=== PATIENT | female | born 1935 | race Caucasian/White ===

== ENCOUNTER 2016-11-19 14:42 | Emergency (ER) | payer MEDICARE, BC ==
[~2016-11-19] VITALS: Wt 52.5 kg
[~2016-11-19 14:42] MED LIST: CITA-98 PO; ESTR1TAB86 PO; EZET10TA3 PO; OXAZ15CA PO; TRAM50TA2 PO; [UNRECOGNIZED DRUG - CODE] PO
[2016-11-19] MEDS ORDERED: SODIUM CHLORIDE 0.9% 1L BAG IV* STA (15:42)
--- NOTE | 2016-11-19 15:49 | ERD ---
ER Documentation Chief Complaint Date/Time DATE: 11/19/16 TIME: 15:45 Chief Complaint FEVER, THROAT PAIN, COUGH, FEELING SICK, ONSET 1 DAY HPI 81-year-old female with no significant medical problems presenting for fever since yesterday. Her states that she has felt warm to touch. She has had some runny nose and some sinus pain as well. She has had some occasional coughing but nothing significant. She denies any chest pain, shortness of breath, abdominal pain, nausea, vomiting, diarrhea. She endorses "some problems " with urination but states it has been going on for a long time. Dr. Whitaker is her primary care doctor. ROS All systems reviewed and are negative except as per history of present illness. Medications Home Meds Active Scripts Levofloxacin* (Levaquin*) 750 Mg Tablet, 750 MG PO DAILY for 5 Days, TAB Prov:IFRAH SHAH MD 11/19/16 Reported Medications Tramadol Hcl-Acetaminophen* (Ultracet*) 1 Tab Tablet, 1 TAB PO TID 12/02/11 Estradiol (Estradiol) 1 Mg Tablet, 1 TAB PO DAILY 12/02/11 Tramadol HCl (Tramadol HCl) 50 Mg Tablet, 1 TAB PO Q8HRS PRN 12/02/11 Ezetimibe* (Zetia*) 10 Mg Tablet, 1 TAB PO DAILY 12/02/11 Oxazepam* (Oxazepam*) 15 Mg Capsule, 1 TAB PO QHS 12/02/11 Citalopram Hydrobromide* (Celexa*) 20 Mg Tablet, 1 TAB PO QHS 12/02/11 Allergies Allergies: Coded Allergies: Penicillins (Verified Allergy, Severe, HIVES, 12/05/11) PMhx/Soc History of Surgery: Yes (HYSTERECTOMY IN 1969. TONSILLECTOMY) Anesthesia Reaction: No Hx Neurological Disorder: No Hx Respiratory Disorders: No Hx Cardiac Disorders: No Hx Psychiatric Problems: No Hx Miscellaneous Medical Probl: No Hx Alcohol Use: No Hx Substance Use: Yes (SOBER SINCE 1991) Hx Tobacco Use: Yes Smoking Status: Current every day smoker FmHx Family History: No diabetes Physical Exam Vitals Vital Signs Date Time Temp Pulse Resp B/P Pulse Ox O2 Delivery O2 Flow Rate FiO2 11/19/16 17:22 74 18 117/51 97 Room Air 11/19/16 14:47 102.6 114 18 136/63 93 Physical Exam Const: Well-appearing, no distress, nontoxic Head: Atraumatic Eyes: Normal Conjunctiva ENT: Normal External Ears, Nose and Mouth. No facial tenderness. No nasal drainage. Oropharynx normal Neck: Full range of motion. No meningismus. No cervical lymphadenopathy Resp: Clear to auscultation bilaterally, no wheezing, rales, rhonchi Cardio: Tachycardic with regular rhythm, no murmurs Abd: Soft, non tender, non distended. Normal bowel sounds Skin: No petechiae or rashes Back: No midline or flank tenderness Ext: No cyanosis, or edema Neur: Awake and alert Psych: Normal Mood and Affect Result Diagram: 11/19/16 1615 11/19/16 1615 Results 24 hrs Laboratory Tests Test 11/19/16 16:12 11/19/16 16:15 Urine Color LT. YELLOW Urine Clarity CLEAR Urine pH 5.5 Urine Specific [place] 1.020 Urine Ketones NEGATIVE Urine Nitrite POSITIVE Urine Bilirubin NEGATIVE Urine Urobilinogen 0.2 E.U./dL Urine Leukocyte Esterase 3+ Urine Microscopic RBC 2-5/HPF Urine WBC Clumps FEW Urine Microscopic WBC >200/HPF Urine Squamous Epithelial Cells MODERATE Urine Bacteria MANY Urine Hemoglobin 1+ Urine Glucose NEGATIVE% Urine Total Protein 1+ White Blood Count 14.410^3/ul Red Blood Count 3.8310^6/ul Hemoglobin 11.3g/dl Hematocrit 34.5% Mean Corpuscular Volume 90.1fl Mean Corpuscular Hemoglobin 29.5pg Mean Corpuscular Hemoglobin Concent 32.8g/dl Red Cell Distribution Width 13.2% Platelet Count 44019^3/UL Mean Platelet Volume 10.1fl Neutrophils % 85.3% Lymphocytes % 5.9% Monocytes % 8.1% Eosinophils % 0.2% Basophils % 0.1% Nucleated Red Blood Cells % 0.0/100WBC Neutrophils # 12.210^3/ul Lymphocytes # 0.910^3/ul Monocytes # 1.210^3/ul Eosinophils # 0.010^3/ul Basophils # 0.010^3/ul Nucleated Red Blood Cells # 0.010^3/ul Prothrombin Time 12.9Sec Prothrombin Time Ratio 1.0 INR International Normalized Ratio 0.97 Activated Partial Thromboplast Time 35.3Sec Sodium Level 141mmol/L Potassium Level 4.4mmol/L Chloride Level 101mmol/L Carbon Dioxide Level 25mmol/L Anion Gap 19 Blood Urea Nitrogen 33mg/dl Creatinine 1.67mg/dl Glucose Level 127mg/dl Lactic Acid Level 1.1mmol/L Calcium Level 9.9mg/dl Total Bilirubin 0.3mg/dl Direct Bilirubin 0.00mg/dl Indirect Bilirubin 0.3mg/dl Aspartate Amino Transf (AST/SGOT) 14IU/L Alanine Aminotransferase (ALT/SGPT) 17IU/L Alkaline Phosphatase 89IU/L Troponin I < 0.012ng/ml Total Protein 7.4g/dl Albumin 4.2g/dl Globulin 3.20g/dl Albumin/Globulin Ratio 1.31 Current Medications Medications (Trade) Dose Ordered Sig/Rip Route PRN Reason Start Time Stop Time Status Last Admin Dose Admin Sodium Chloride 1630 ml 1,630 ml BOLUS OVER 2 HOURS STAT IV* 11/19/16 15:42 11/19/16 15:45 DC 11/19/16 16:27 Levofloxacin/ Dextrose (Levaquin 750 Mg/ D5W 150 ml (Pmx)) 150 ml @ 100 mls/hr ONCE ONCE IVPB 11/19/16 16:00 11/19/16 17:29 DC 11/19/16 16:27 Acetaminophen (Tylenol Tab) 650 mg ONCE ONCE PO 11/19/16 16:00 11/19/16 16:01 DC 11/19/16 16:31 Procedures/MDM EKG: Rate/Rhythm: Sinus tachycardia QRS, ST, T-waves: No changes consistent w/ acute ischemia Impression: No evidence of ischemia or arrhythmia Chest x-ray shows no acute abnormalities per radiology Labs reviewed: CBC was notable for leukocytosis, CMP was notable for elevated BUN and creatinine, lactate was within normal limits, urinalysis shows evidence of UTI Patient's presentation is consistent with sepsis. Source is unknown, but I suspect possible UTI given her symptoms. Initially her vitals were notable for fever and tachycardia. She was given a fluid bolus with improvement in her vital signs. The patient is nontoxic and she is well-appearing. Her urinalysis confirmed evidence of a UTI. Chest x-ray does not show pneumonia. Her lactate is within normal limits. Levofloxacin IV was given. Patient's infectious symptoms have stabilized and the patient is stable for outpatient treatment of her UTI. I spoke with her PCP's colleague, Dr. Driscoll, and they will ensure she gets a follow up appointment this week with her doctor for repeat BMP. I will discharge her with levofloxacin. Patient feels comfortable with this plan. Return precautions were discussed. Severe Sepsis Assessment: Infectious Source: UTI End organ damage indicated by: INR > 1.5 Severe Sepsis Managment: Blood Cultures X 2 before broad spectrum antibiotics initiated within 3 hours of recognition. 30 ml/kg NS bolus Completed Initial Lactate: normal Repeat Lactate not indicated as initial < 2.0 Critical Care: Time: 35 minutes Treatments/Evaluations: Emergent fluid management, while maintaining close respiratory support. Immediate broad spectrum antibiotic therapy. Simultaneous assessment for possible sources in order to direct therapy. Consideration for invasive and chemical support to prevent respiratory or cardiac collapse. Septic Shock Assessment (1 hour post 30 ml/kg fluid bolus): Hypotension (SBP < 90 or 40 mmHg drop, MAP < 65): No Lactic acid > 4.0 No Departure Diagnosis: Primary Impression: UTI (urinary tract infection) Urinary tract infection type: acute cystitis Hematuria presence: without hematuria Qualified Code: N30.00 - Acute cystitis without hematuria Additional Impressions: Sepsis Sepsis type: sepsis due to unspecified organism Qualified Code: A41.9 - Sepsis, due to unspecified organism Acute kidney injury Condition: Stable EKIFRAH WHIPPLE MD Nov 19, 2016 15:49
[2016-11-19] MEDS ORDERED: ACETAMINOPHEN 325 MG TAB PO ONE (16:00)
[2016-11-19] MEDS ORDERED: LEVOFLOXACIN 750MG/D5W (PMX) 150 ML IVPB ONE (16:00)
[2016-11-19 16:34] LABS: ADD SCAN DIFF NO
[2016-11-19 16:35] LABS: ADD UMIC YES; URINE BILIRUBIN (Dip) NEGATIVE (NEGATIVE); URINE BLOOD (Dip) 1+ (NEGATIVE); URINE COLOR LT. YELLOW (YELLOW); URINE GLUCOSE (Dip) NEGATIVE (NEGATIVE); URINE KETONES (Dip) NEGATIVE (NEGATIVE); URINE LEUKOCYTE ESTERASE (Dip) 3+ (NEGATIVE); URINE NITRITE (Dip) POSITIVE (NEGATIVE); URINE TOTAL PROTEIN (Dip) 1+ (NEGATIVE); URINE UROBILINOGEN (Dip) 0.2 E.U./dL (0.1-1.0)
[2016-11-19 16:39] LABS: BASOPHILS % 0.1 % (0.0-2.0); EOSINOPHILS % 0.2 % (0.0-7.0); HEMATOCRIT 34.5 % (37.0-47.0); HEMOGLOBIN 11.3 g/dl (12.0-16.0); LYMPHOCYTES # 0.9 10^3/ul (0.8-2.9); LYMPHOCYTES % 5.9 % (15.0-51.0); MEAN CORPUSCULAR HEMOGLOBIN 29.5 pg (29.0-33.0); MEAN CORPUSCULAR HGB CONC 32.8 g/dl (32.0-37.0); MEAN CORPUSCULAR VOLUME 90.1 fl (82.0-101.0); MEAN PLATELET VOLUME 10.1 fl (7.4-10.4); MONOCYTE # 1.2 10^3/ul (0.3-0.9); MONOCYTES % 8.1 % (0.0-11.0); NEUTROPHIL # 12.2 10^3/ul (1.6-7.5); NEUTROPHILS % 85.3 % (39.0-77.0); PLATELET COUNT 319 10^3/UL (140-415); RED BLOOD COUNT 3.83 10^6/ul (4.20-5.40); RED CELL DISTRIBUTION WIDTH 13.2 % (11.5-14.5); WHITE BLOOD COUNT 14.4 10^3/ul (4.8-10.8)
[2016-11-19 16:45] LABS: INR 0.97; PROTIME 12.9 Sec (12.2-14.2)
[2016-11-19 16:46] LABS: ALBUMIN 4.2 g/dl (3.3-4.9); CHLORIDE 101 mmol/L (97-110); PARTIAL THROMBOPLASTIN TIME 35.3 Sec (25.0-35.0); SODIUM 141 mmol/L (135-144)
[2016-11-19 16:47] LABS: POTASSIUM 4.4 mmol/L (3.5-5.1)
[2016-11-19 16:49] LABS: ALANINE AMINOTRANSFERASE 17 IU/L (13-69); ALBUMIN/GLOBULIN RATIO 1.31; ALKALINE PHOSPHATASE 89 IU/L (42-121); ANION GAP 19 (8-16); ASPARTATE AMINO TRANSFERASE 14 IU/L (15-46); BILIRUBIN,INDIRECT 0.3 mg/dl (0-1.1); BILIRUBIN,TOTAL 0.3 mg/dl (0.2-1.3); BLOOD UREA NITROGEN 33 mg/dl (7-20); CARBON DIOXIDE 25 mmol/L (21-31); CREATININE 1.67 mg/dl (0.44-1.00); GLUCOSE 127 mg/dl (70-220); TOTAL PROTEIN 7.4 g/dl (6.1-8.1)
[2016-11-19 16:50] LABS: CALCIUM 9.9 mg/dl (8.4-10.2)
[2016-11-19 17:04] LABS: TROPONIN-I < 0.012 ng/ml (0.00-0.12)
[2016-11-19 17:10] LABS: SQUAMOUS EPITHELIAL CELL,UR MODERATE
[2016-11-19 17:11] LABS: BACTERIA,URINE MANY
--- NOTE | 2016-11-19 17:30 | RADRPT ---
PROCEDURE: XR Chest. CLINICAL INDICATION: Chest pain, sepsis TECHNIQUE: AP view of the chest was performed. COMPARISON: None FINDINGS: The cardiomediastinal silhouette is within normal limits. The lungs are clear. No signs of pleural f luid or pneumothorax are seen. The osseous structures and soft tissues are unremarkable. IMPRESSION: No evidence for active cardiopulmonary disease. RPTAT: QQ .Anusha Prather MD, MD Date Time Electronically viewed and signed by .Anusha Prather MD, on 11/19/2016 17:29 .F/
[2016-11-19] MEDS ORDERED: LEVO750T25 PO (17:44)
[2016-11-19 19:40] VITALS: BP 124/55; PULSE 79; RESP 18; TEMP 98.9
== END 2016-11-19 19:40 | disposition home or self-care (01) ==
LOC: E/R 14:42
DX: N30.00 Acute cystitis without hematuria (principal); A41.9 Sepsis, unspecified organism
CPT/HCPCS: 71010; 80053; 81001; 81003; 83605; 84484; 85025; 85610; 85730; 87040; 87086; 87400; 93005; J1956; J7030; 36415; 96374

== ENCOUNTER 2017-07-28 07:53 | Emergency (ER) | payer MEDICARE, BC ==
[~2017-07-28] VITALS: Ht 160 cm; Wt 54.6 kg
[~2017-07-28 07:53] MED LIST changes: +LEVO750T25 PO
[2017-07-28 07:56] VITALS: Ht 160 cm; Wt 54.6 kg
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
[2017-07-28] MEDS ORDERED: ALBUTEROL 0.083% (NEB) 2.5 MG/3 ML AMP HHN STA (10:09)
[2017-07-28] MEDS ORDERED: IPRATROPIUM (NEB) 0.5 MG/2.5 ML AMP HHN ONE (10:30)
--- NOTE | 2017-07-28 10:38 | RADRPT ---
PROCEDURE: XR Chest. CLINICAL INDICATION: cough TECHNIQUE: PA and Lateral views of the chest were obtained. COMPARISON: None. FINDINGS: The patient has a poor inspiration. Patient is rotated to the left. The heart is within normal limit s in size. There is atherosclerosis of the aorta. There is basilar parenchymal changes consistent wi th atelectasis and scarring. Remainder lungs are clear. No evidence of pulmonary vascular congestion pleural effusions and pneumothorax. Bones are osteopenic. IMPRESSION: 1. No evidence congestive heart or pneumonia . 2. Bibasilar parenchymal changes consistent with atelectasis and scarring. RPTAT:AAJJ Physician Basilio Date Time Electronically viewed and signed by Physician Basilio on 07/28/2017 10:38 BM/
[2017-07-28] MEDS ORDERED: ALBU8.5H3 INH (11:03)
[2017-07-28] MEDS ORDERED: AZIT250T94 PO (11:03)
[2017-07-28] MEDS ORDERED: ACET500C5 PO (11:04)
[2017-07-28] MEDS ORDERED: PRED20TA PO (11:04)
== END 2017-07-28 11:36 | disposition home or self-care (01) ==
LOC: FTE 07:53
DX: J20.9 Acute bronchitis, unspecified (principal); I10 Essential (primary) hypertension; F17.210 Nicotine dependence, cigarettes, uncomplicated
CPT/HCPCS: 71020; 93005; 94664

== ENCOUNTER 2017-08-12 20:51 | Emergency (ER) | END 2017-08-12 23:44 | disposition home or self-care (01) ==

== ENCOUNTER 2018-12-01 11:07 | Emergency (ER) | payer MEDICARE, BC ==
[~2018-12-01] VITALS: Wt 51.7 kg
[~2018-12-01 11:07] MED LIST changes: +ACET500C5 PO; +ALBU8.5H8 INH; +AZIT250T PO; -EZET10TA3 PO; +EZET10TA31 PO; +PRED20TA PO
--- NOTE | 2018-12-01 13:01 | ERD ---
ER Documentation Chief Complaint Chief Complaint FEELS ANXIOUS HPI The patient is 83-year-old female, presenting to the ER because of intermittent abdominal pain for the last 7 days, intermittent diarrhea for the last 2 days, she did not have any diarrhea today. She denies vomiting/hematemesis/hematochezia, fever, chills, neck pain, chest pain, dyspnea. She smokes socially Past medical history: Dyslipidemia, hypertension, epilepsy, vertigo Past surgical history: Hysterectomy ROS All systems reviewed and are negative except as per history of present illness. Medications Home Meds Active Scripts Nitrofurantoin Monohyd Macrocr* (Macrobid*) 100 Mg Capsr, 100 MG PO BID for 14 Days, CAP Prov:SHABBIR VELASQUEZ MD 12/01/18 Acetaminophen* (Tylophen*) 500 Mg Capsule, 1 CAP PO Q6H PRN for PAIN AND OR ELEVATED TEMP, #20 CAP Prov:MINERVA HALEY MD 08/12/17 Acetaminophen* (Tylophen*) 500 Mg Capsule, 1 CAP PO Q6H PRN for PAIN AND OR ELEVATED TEMP, #20 CAP Prov:ADAMS SHANKS 07/28/17 Prednisone* (Prednisone*) 20 Mg Tab, 40 MG PO DAILY for 5 Days, TAB Prov:ADAMS SHANKS 07/28/17 Albuterol Sulfate* (Proair HFA*) 8.5 Gm Hfa.aer.ad, 2 PUFF INH Q4, #1 INHALER Prov:ADAMS SHANKS 07/28/17 Azithromycin* (Zithromax*) 250 Mg Tablet, 250 MG PO .SUNDAR DIRECTED, #6 TAB TAKE 500 MG (2 TABS) THE FIRST DAY THEN 250 MG (1 TAB) DAYS 2-5 Prov:ADAMS SHANKS 07/28/17 Levofloxacin* (Levaquin*) 750 Mg Tablet, 750 MG PO DAILY for 5 Days, TAB Prov:IFRAH SHAH MD 11/19/16 Reported Medications Tramadol Hcl-Acetaminophen* (Ultracet*) 1 Tab Tablet, 1 TAB PO TID 12/02/11 Estradiol (Estradiol) 1 Mg Tablet, 1 TAB PO DAILY 12/02/11 Tramadol HCl (Tramadol HCl) 50 Mg Tablet, 1 TAB PO Q8HRS PRN 12/02/11 Ezetimibe* (Zetia*) 10 Mg Tablet, 1 TAB PO DAILY 12/02/11 Oxazepam* (Oxazepam*) 15 Mg Capsule, 1 TAB PO QHS 12/02/11 Citalopram Hydrobromide* (Celexa*) 20 Mg Tablet, 1 TAB PO QHS 12/02/11 Allergies Allergies: Coded Allergies: Penicillins (Verified Allergy, Severe, HIVES, 07/28/17) PMhx/Soc History of Surgery: Yes (HYSTERECTOMY IN 1969. TONSILLECTOMY) Anesthesia Reaction: No Hx Neurological Disorder: No Hx Respiratory Disorders: No Hx Cardiac Disorders: Yes (HTN) Hx Psychiatric Problems: Yes (Anxiety) Hx Miscellaneous Medical Probl: Yes Hx Alcohol Use: No Hx Substance Use: Yes (SOBER SINCE 1991) Hx Tobacco Use: Yes (1 cig/ day) Physical Exam Vitals Vital Signs Date Temp Pulse Resp B/P (MAP) Pulse Ox O2 O2 Flow FiO2 Time Delivery Rate 12/01/18 98.6 86 18 155/80 100 Room Air 14:27 (105) 12/01/18 98.8 84 18 203/87 98 11:17 (125) Physical Exam Const: No acute distress. Head: Atraumatic. Eyes: Normal Conjunctiva. ENT: Normal External Ears, Nose and Mouth. Neck: Full range of motion. No meningismus. Resp: Clear to auscultation bilaterally. Cardio: Regular rate and rhythm. Abd: Soft, non distended, normal bowel sounds, non tender. Skin: No petechiae or rashes. Back: No midline or flank tenderness. Ext: No cyanosis, or edema. Neur: Awake and alert. No focal deficit Psych: Anxious Result Diagram: 12/01/18 1323 12/01/18 1323 Results 24 hrs Laboratory Tests Test 12/01/18 13:23 12/01/18 13:55 White Blood Count 6.8 10^3/ul Red Blood Count 4.12 10^6/ul Hemoglobin 12.2 g/dl Hematocrit 36.9 % Mean Corpuscular Volume 89.6 fl Mean Corpuscular Hemoglobin 29.6 pg Mean Corpuscular Hemoglobin Concent 33.1 g/dl Red Cell Distribution Width 12.7 % Platelet Count 254 10^3/UL Mean Platelet Volume 10.2 fl Immature Granulocytes % 0.400 % Neutrophils % 70.3 % Lymphocytes % 20.5 % Monocytes % 6.9 % Eosinophils % 1.5 % Basophils % 0.4 % Nucleated Red Blood Cells % 0.0 /100WBC Immature Granulocytes # 0.030 10^3/ul Neutrophils # 4.8 10^3/ul Lymphocytes # 1.4 10^3/ul Monocytes # 0.5 10^3/ul Eosinophils # 0.1 10^3/ul Basophils # 0.0 10^3/ul Nucleated Red Blood Cells # 0.0 10^3/ul Sodium Level 142 mmol/L Potassium Level 4.1 mmol/L Chloride Level 108 mmol/L Carbon Dioxide Level 25 mmol/L Anion Gap 9 Blood Urea Nitrogen 21 mg/dl Creatinine 1.21 mg/dl Est Glomerular Filtrat Rate mL/min mL/min Glucose Level 102 mg/dl Calcium Level 10.2 mg/dl Total Bilirubin 0.4 mg/dl Direct Bilirubin 0.00 mg/dl Indirect Bilirubin 0.4 mg/dl Aspartate Amino Transf (AST/SGOT) 28 IU/L Alanine Aminotransferase (ALT/SGPT) 40 IU/L Alkaline Phosphatase 64 IU/L Total Protein 7.0 g/dl Albumin 4.3 g/dl Globulin 2.70 g/dl Albumin/Globulin Ratio 1.59 Lipase 141 U/L Bedside Urine pH (LAB) 5.5 Bedside Urine Protein (LAB) 1+ Bedside Urine Glucose (UA) Negative Bedside Urine Ketones (LAB) Negative Bedside Urine Blood Trace-intact Bedside Urine Nitrite (LAB) Negative Bedside Urine Leukocyte Esterase (L Negative Procedures/MDM EKG: Read by emergency physician Rate/Rhythm: Normal Sinus Rhythm 88 beats/min QRS, ST, T-waves: No ST elevation, no T inversion Impression: Normal EKG MEDICAL MAKING DECISION: The patient is a 83-year-old female, presenting with acute cystitis. She was very anxious in the ER, later she became much better, blood pressure improved without any treatment The differential diagnoses considered include but are not limited to cholelithiasis, cholecystitis, choledocholithiasis, cholangitis, pancreatitis, hepatitis, gastritis, peptic ulcer disease, gastric ulcer, appendicitis, cystitis, diverticulitis, partial small bowel obstruction. Departure Diagnosis: Primary Impression: UTI (urinary tract infection) Condition: Good Comments She was discharged with Macrobid I discussed the findings with the patient. I advised the patient to follow-up with the primary physician in about 2-3 days, sooner if needed and return if any concern. Disclaimer: Inadvertent spelling and grammatical errors are likely due to EHR/dictation software use and do not reflect on the overall quality of patient care. Also, please note that the electronic time recorded on this note does not necessarily reflect the actual time of the patient encounter. SHABBIR VELASQUEZ MD Dec 01, 2018 13:01
[2018-12-01 14:27] VITALS: BP 155/80; PULSE 86; RESP 18
[2018-12-01] MEDS ORDERED: NITR-58 PO (14:39)
== END 2018-12-01 15:08 | disposition home or self-care (01) ==
LOC: E/R 11:07
DX: N39.0 Urinary tract infection, site not specified (principal); I10 Essential (primary) hypertension; Z87.891 Personal history of nicotine dependence
CPT/HCPCS: 36415; 80053; 81003; 83690; 85025; 93005; 99284

== ENCOUNTER 2019-03-08 20:42 | Emergency (ER) | payer MEDICARE, BC ==
[~2019-03-08] VITALS: Ht 154.9 cm; Wt 52.7 kg
[~2019-03-08 20:42] MED LIST changes: +NITR-58 PO
[2019-03-08] MEDS ORDERED: SOD CHLORIDE 0.9% 1,000 ML IV STA ×2 (20:48→23:16)
[2019-03-08 20:54] VITALS: Ht 154.9 cm; Wt 52.7 kg
--- NOTE | 2019-03-08 21:11 | ERD ---
ER Documentation Chief Complaint Chief Complaint RIGO from home,near syncope,hypotensive BP 90/36,denies pain HPI There is an 83-year-old female who lives at home with her . The patient had a mechanical fall yesterday sustained a facial trauma and was seen at [facility] where she had CAT scans and a laceration repair overlying her right periorbital region. Today she felt a little lightheaded and felt like she might pass out. She was helped to the ground. She did not lose consciousness. Patient had no prodrome of headache chest pain or shortness of breath. Blood pressure was slightly low in the field responsive to gentle fluid resuscitation by EMS. Blood pressure go to than 110 systolic here in the emergency room. Currently the patient has no complaints. She denies any headache facial pain jaw pain neck pain chest pain or abdominal pain. She states that when she felt it she did not injure her abdomen or back. She denies hematemesis or melena. ROS All systems reviewed and are negative except as per history of present illness. Medications Home Meds Active Scripts Nitrofurantoin Monohyd Macrocr* (Macrobid*) 100 Mg Capsr, 100 MG PO BID for 14 Days, CAP Prov:SHABBIR VELASQUEZ MD 12/01/18 Acetaminophen* (Tylophen*) 500 Mg Capsule, 1 CAP PO Q6H PRN for PAIN AND OR ELEVATED TEMP, #20 CAP Prov:MINERVA HALEY MD 08/12/17 Acetaminophen* (Tylophen*) 500 Mg Capsule, 1 CAP PO Q6H PRN for PAIN AND OR ELEVATED TEMP, #20 CAP Prov:ADAMS SHANKS 07/28/17 Prednisone* (Prednisone*) 20 Mg Tab, 40 MG PO DAILY for 5 Days, TAB Prov:ADAMS SHANKS 07/28/17 Albuterol Sulfate* (Proair HFA*) 8.5 Gm Hfa.aer.ad, 2 PUFF INH Q4, #1 INHALER Prov:ADAMS SHANKS 07/28/17 Azithromycin* (Zithromax*) 250 Mg Tablet, 250 MG PO .ZPACK DIRECTED, #6 TAB TAKE 500 MG (2 TABS) THE FIRST DAY THEN 250 MG (1 TAB) DAYS 2-5 Prov:ADAMS SHANKS 07/28/17 Levofloxacin* (Levaquin*) 750 Mg Tablet, 750 MG PO DAILY for 5 Days, TAB Prov:IFRAH SHAH MD 11/19/16 Reported Medications Tramadol Hcl-Acetaminophen* (Ultracet*) 1 Tab Tablet, 1 TAB PO TID 12/02/11 Estradiol (Estradiol) 1 Mg Tablet, 1 TAB PO DAILY 12/02/11 Tramadol HCl (Tramadol HCl) 50 Mg Tablet, 1 TAB PO Q8HRS PRN 12/02/11 Ezetimibe* (Zetia*) 10 Mg Tablet, 1 TAB PO DAILY 12/02/11 Oxazepam* (Oxazepam*) 15 Mg Capsule, 1 TAB PO QHS 12/02/11 Citalopram Hydrobromide* (Celexa*) 20 Mg Tablet, 1 TAB PO QHS 12/02/11 Allergies Allergies: Coded Allergies: Penicillins (Verified Allergy, Severe, HIVES, 07/28/17) PMhx/Soc History of Surgery: Yes (hysterectomy 1970,tonsillectomy) Anesthesia Reaction: No Hx Neurological Disorder: Yes (seizure) Hx Respiratory Disorders: No Hx Cardiac Disorders: Yes (HTN) Hx Psychiatric Problems: Yes (Anxiety) Hx Miscellaneous Medical Probl: Yes Hx Alcohol Use: Yes (sober) Hx Substance Use: Yes (SOBER SINCE 1991) Hx Tobacco Use: Yes (1 cig/ day) Smoking Status: Former smoker FmHx Family History: No diabetes Physical Exam Vitals Vital Signs Date Temp Pulse Resp B/P (MAP) Pulse Ox O2 O2 Flow FiO2 Time Delivery Rate 03/08/19 95 18 136/67 97 Room Air 23:00 (90) 03/08/19 93 22 113/46 96 Room Air 21:00 (68) 03/08/19 97.3 93 16 113/58 100 20:54 (76) Physical Exam Airway is intact Bilateral breath sounds Strong distal pulses No obvious deficits General: Well developed, well nourished, no acute distress Head: Normocephalic, atraumatic Eyes: Patient has periorbital ecchymoses over the right periorbital region with associated laceration that is status post suture repair that is well approximated. ENT: Moist mucous membranes, normal jaw opening and closing Neck: Supple, no lymphadenopathy, No midline tenderness, deformities, step-offs to the cervical spine, full active and passive range of motion without midline pain. Respiratory: Lungs clear bilaterally, no distress, no chest wall tenderness, no crepitus Cardiovascular: RRR, no murmurs, rubs, or gallops Abdominal: Soft, non-tender, non-distended, no peritoneal signs, pelvis is stable : Deferred MSK: No edema, no unilateral swelling, 5/5 strength, no midline tenderness deformities or step-offs to the thoracolumbar spine Neurologic: Alert and oriented, moving all extremities, normal speech, no focal weakness, no cerebellar signs Skin: No ecchymoses or bruising to the chest or abdomen Psych: Normal mood Result Diagram: 03/08/19 2103 03/09/19 0029 Results 24 hrs Laboratory Tests Test 03/08/19 20:55 03/08/19 21:03 03/08/19 23:55 03/09/19 00:29 Bedside Glucose 105 mg/dL White Blood Count 5.7 10^3/ul Red Blood Count 3.50 10^6/ul Hemoglobin 10.5 g/dl Hematocrit 31.9 % Mean Corpuscular 91.1 fl Volume Mean Corpuscular 30.0 pg Hemoglobin Mean Corpuscular 32.9 g/dl Hemoglobin Concen t Red Cell 13.0 % Distribution Width Platelet Count 250 10^3/UL Mean Platelet 10.4 fl Volume Immature 0.200 % Granulocytes % Neutrophils % 57.3 % Lymphocytes % 27.7 % Monocytes % 8.3 % Eosinophils % 6.0 % Basophils % 0.5 % Nucleated Red 0.0 /100WBC Blood Cells % Immature 0.010 10^3/ul Granulocytes # Neutrophils # 3.3 10^3/ul Lymphocytes # 1.6 10^3/ul Monocytes # 0.5 10^3/ul Eosinophils # 0.3 10^3/ul Basophils # 0.0 10^3/ul Nucleated Red 0.0 10^3/ul Blood Cells # Sodium Level 139 mmol/L 142 mmol/L Potassium Level 4.2 mmol/L 4.4 mmol/L Chloride Level 106 mmol/L 110 mmol/L Carbon Dioxide 26 mmol/L 24 mmol/L Level Anion Gap 7 8 Blood Urea 30 mg/dl 29 mg/dl Nitrogen Creatinine 2.13 mg/dl 1.82 mg/dl Est Glomerular mL/min mL/min Filtrat Rate mL/min Glucose Level 101 mg/dl 105 mg/dl Calcium Level 9.2 mg/dl 8.6 mg/dl Troponin I < 0.012 ng/ml Urine Color STRAW Urine Clarity CLEAR Urine pH 5.0 Urine Specific 1.005 [place] Urine Ketones NEGATIVE mg/dL Urine Nitrite NEGATIVE mg/dL Urine Bilirubin NEGATIVE mg/dL Urine NEGATIVE mg/dL Urobilinogen Urine Leukocyte 1+ Michelle/ul Esterase Urine Microscopic 0 /HPF RBC Urine Microscopic 11 /HPF WBC Urine Hemoglobin NEGATIVE mg/dL Urine Glucose NEGATIVE mg/dL Urine Total NEGATIVE mg/dl Protein Current Medications Medications Dose Sig/Rip Start Time Status Last (Trade) Ordered Route PRN Stop Time Admin Dose Reason Admin Sodium 1,000 ml @ Q1H STAT 03/08/19 DC 03/08/19 Chloride 1,000 mls/hr IV 20:48 21:10 03/08/19 21:47 Ondansetron 4 mg ER BRIDGE 03/08/19 HCl (Zofran PRN IV 23:30 Inj) NAUSEA/VOMITI 03/09/19 23:29 NG 650 mg ER BRIDGE 03/08/19 Acetaminophen PRN PO 23:30 (Tylenol .MILD PAIN 03/09/19 23:29 Tab) 1-3 OR TEMP Sodium 1,000 ml @ Q1H STAT 03/08/19 DC 03/08/19 Chloride 1,000 mls/hr IV 23:16 23:19 03/09/19 00:15 Procedures/MDM EKG, MONITORS, & DIAGNOSTIC IMAGING: EKG: I reviewed and interpreted a 12-lead EKG. Rhythm: Normal sinus rhythm ST Changes: No contiguous ST segment elevations T waves: No contiguous T wave inversions Impression: No evidence of acute cardiac ischemia Chest x-ray: I reviewed and interpreted a 1 view of the chest Mediastinum: No enlargement Cardiac silhouette: No cardiomegaly Airspace: Clear lung zacarias bilaterally without evidence of pneumothorax Bones: No evidence of fracture CT head: IMPRESSION: 1. Age-appropriate involutional change. 2. Chronic cerebral microvascular ischemic disease. 3. No acute intracranial hemorrhage or subdural collection. CT facial bone: IMPRESSION: 1. No acute facial bone fracture. 2. Mild right supraorbital and right cheek soft tissue swelling. RPTAT: [facility] LAB INTERPRETATION: I reviewed the laboratory testing and it shows creatinine elevation of 2.13 above baseline around the 1 range. MEDICAL DECISION MAKING: The patient had a mechanical trip and fall yesterday sustaining facial trauma and head injury with what appears to be a negative work-up at an outside hospital yesterday. Today she had an episode of presyncope with prodrome. The patient had no headache chest pain or shortness of breath suggestive of subarachnoid hemorrhage, syncope, ACS, pulmonary embolism. Patient did not fall or injure her thorax or abdomen or pelvis or flank. Low concern for solid organ injury or intra-abdominal hemorrhage. Presyncope today possibly related to recent head injury however I cannot rule out subacute intracranial hemorrhage. CT imaging is necessary. The patient's blood pressure is responded nicely to gentle fluid resuscitation. Patient is not falling frequently at home therefore I feel she is safe for discharge if negative work-up here. ER COURSE: * Patient's only a normality is creatinine elevation. I spoke to provider at [facility] who states that the patient's most recent creatinine 2 days ago was 1.5. I am concerned about this increase. In the setting of near syncope this is possibly related to dehydration, acute renal insufficiency. Given the patient's age and increasing creatinine over 2-day timeframe inpatient hospitalization would be reasonable. * I did discuss the case with Dr. Whitaker, the patient's primary care physician. Given the recent hospitalization otherwise well-appearing status of the patient we did discuss hydration in the emergency room and repeat chemistry. This has been done. The patient received 2 L. Repeat creatinine is improving to 1.8. Based on our conversations and the appropriateness of prompt outpatient follow-up I do believe discharge would be appropriate. Dr. Whitaker feels very comfortable with this and will follow-up in his office. CONSULTATION: None DISPOSITION PLAN: The patient does not have an identifiable emergent medical condition that war rants inpatient hospitalization at this time. The patient is deemed safe for discharge with outpatient follow-up. We discussed follow up with the patient's primary care doctor within 24 to 48 hours as needed. We also discussed return to the emergency room for worsening symptoms or worsening condition. Outpatient referral: None required Discharge Medications: None required Departure Diagnosis: Primary Impression: Acute renal insufficiency Additional Impressions: Near syncope Dehydration Condition: Stable ROBERT BRITO MD Mar 08, 2019 21:11
[2019-03-08] MEDS ORDERED: ACETAMINOPHEN 325 MG TAB PO PRN (23:30)
[2019-03-08] MEDS ORDERED: ONDANSETRON 4 MG INJ IV PRN (23:30)
[2019-03-09 01:45] VITALS: BP 121/54; PULSE 96; RESP 16
== END 2019-03-09 01:45 | disposition home or self-care (01) ==
LOC: E/R 20:42 → CANBEDREQ 03-09 01:21 → E/R 03-09 01:45
DX: N28.9 Disorder of kidney and ureter, unspecified (principal); E86.0 Dehydration; I10 Essential (primary) hypertension; Z87.891 Personal history of nicotine dependence
CPT/HCPCS: 70450; 70486; 71045; 80048; 81001; 82962; 84484; 85025; J7030; 36415; 93005